=== PATIENT | male | born 1945 | race Caucasian/White ===

== ENCOUNTER 2018-11-16 16:31 | Emergency (ER) | payer OTHER, MEDICAID ==
[~2018-11-16] VITALS: Ht 180.3 cm; Wt 75.7 kg
[2018-11-16 16:35] VITALS: BP 148/63; Ht 180.3 cm; Wt 75.7 kg
== END 2018-11-16 17:05 | disposition home or self-care (01) ==
LOC: ED 16:31
DX: Z13.89 Encounter for screening for other disorder (principal); I10 Essential (primary) hypertension; F20.9 Schizophrenia, unspecified